=== PATIENT | male | born 1950 | race Two or more races ===

== ENCOUNTER 2021-03-08 08:08 | Day surgery (SDC) | payer OTHER | END 2021-03-08 13:35 | disposition home or self-care (01) | LOC: AMB-ENDOS 08:08 | PROVIDERS: ATTEND Surgery | DX: D12.3 Benign neoplasm of transverse colon (principal); Z20.822 Contact with and (suspected) exposure to COVID-19 ==

== ENCOUNTER 2022-04-29 05:40 | Day surgery (SDC) | payer OTHER | END 2022-04-29 10:35 | disposition home or self-care (01) | LOC: AMB-ENDOS 05:40 | PROVIDERS: ATTEND Surgery | DX: D12.3 Benign neoplasm of transverse colon (principal); K57.30 Diverticulosis of large intestine without perforation or abscess without bleeding; Z20.822 Contact with and (suspected) exposure to COVID-19; I10 Essential (primary) hypertension ==